=== PATIENT | male | born 1950 | race Caucasian/White ===

== ENCOUNTER 2016-12-12 05:59 | Day surgery (SDC) | payer MEDICARE ==
[2016-12-07 18:03] LABS: HEMATOCRIT 45.7 % (40.0-51.0); HEMOGLOBIN 15.4 g/dL (13.6-17.8)
[~2016-12-12 05:59] MED LIST: TIMOLOL MAL0.5 % OPH
== END 2016-12-12 23:59 | disposition home health service (06) ==
LOC: SDC 05:59
PROVIDERS: Otolaryngology
DX: Z53.9 Procedure and treatment not carried out, unspecified reason (principal); J33.9 Nasal polyp, unspecified
CPT/HCPCS: 85014; 85018; 85730; 93005

== ENCOUNTER 2016-12-19 07:06 | Day surgery (SDC) | payer MEDICARE ==
--- NOTE | ~2016-12-19 | OP ---
Record Of Operation [facility] [address] [facility] [place]. [address] NAME: KADEN TURPIN : 50 STATUS : [facility] PAT#: [id number] AGE: 66 ADM/REG DATE : 12/19/16 MR#: [id number] REPORT SERV DATE: 12/19/16 DICTATED BY: BLANCA HU DATE: 12/19/16 REPORT STATUS : Draft TRANSCRIBED BY: MODL DATE: 12/19/16 DATE OF PROCEDURE: 12/19/2016 SERVICE: Otolaryngology. SURGEON: Blanca Hu M.D. 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 PROCEDURE PERFORMED: 1. Right endoscopic medial maxillectomy. 2. Right inferior turbinate resection. 3. Right total ethmoidectomy. 4. Right sphenoidotomy with tissue removal. 5. Right frontal sinusotomy with tissue removal. 6. Placement of Propel stent in right frontal sinus outflow tract. INDICATIONS FOR PROCEDURE: The patient is a 66-year-old gentleman with a history of previous sinonasal mass, which was resected approximately six years ago in [place], [place]. 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 He is noted to have recurrence on CT imaging and presents for surgical management. SPECIMENS: 1. Right maxillary sinus contents. 2. Right sphenoid contents. 3. Right frontal sinus contents. ESTIMATED BLOOD LOSS: 250 mL. RETAINED ITEMS: Right frontal sinus Propel stent. COMPLICATIONS: None. OPERATIVE FINDINGS: 1. Inverted papilloma filling the right maxillary sinus, which shows evidence of previous maxillary antrostomy. There is also evidence of inferior partial turbinectomy as well as partial middle turbinectomy. 2. There is some concern for extension of disease into the right sphenoid sinus. This could represent a post obstructive mucosal inflammation versus extension of the inverted papilloma. 3. Similar findings were noted in the right frontal sinus outflow. There is inflamed mucosa, but also concern for extension of the disease process in the frontal sinus. CT scan confirmed both frontal and sphenoid sinuses complete opacifications. 4. Endoscopic medial maxillectomy with removal of all mucosa and gross invert Record Of Operation [facility] [address] [facility] [place]. [address] NAME: KADEN TURPIN : 50 STATUS : [facility]#: [id number] AGE: 66 ADM/REG DATE : 12/19/16 MR#: [id number] REPORT SERV DATE: 12/19/16 DICTATED BY: BLANCA HU DATE: 12/19/16 REPORT STATUS : Draft TRANSCRIBED BY: TORRES DATE: 12/19/16 papillomatous disease. There was evidence of extension of the inverted papilloma toward the true os and extending on to the lateral nasal wall mucosa. Consequently, this was brought anteriorly with possible disruption of the nasolacrimal duct. However, on palpation of the eye, there appeared to be visible nasolacrimal duct with production of tears through this in the site of the inferior meatus. DESCRIPTION OF PROCEDURE: The patient was identified in the preoperative holding where informed consent was ensured. He was brought to the operating room and placed on the operating table in supine position. General endotracheal anesthesia was induced without difficulty. A time-out was performed to correctly identify the patient and discuss operative plan. The patient was then prepped and draped in the standard fashion. The [employer] image guidance system was affixed appropriately, and all instruments were registered. The appropriate landmarks including the lateral orbital rim as well as nasion were identified and found to be appropriately identified. The [employer] navigation system was used throughout the remainder of this case. Topical 1:1000 epinephrine pledgets were placed in bilateral nasal cavities. The nasal endoscope was then white balanced appropriately, and good visualization was obtained. Epinephrine-soaked pledgets were removed, and the left nasal cavity was examined. There was no evidence of papillomatous or sinonasal mass disease. Attention was then turned to the contralateral side. There was polypoid tissue filling the right nasal cavity. This appeared to be emanating from the right maxillary sinus. It extended posteriorly towards the sphenoid sinus and superiorly toward the frontal sinus outflow. Microdebrider was used to remove the block in this tissue in the nasal cavity. The maxillary antrum, which had been previously opened by surgical procedure several years prior, was identified. The roof of the maxillary sinus was also carefully identified. A curved tonsils were then placed just posterior to the head of the inferior turbinate. These were clamped and allowed us to establish good hemostasis. The remaining inferior turbinate was then resected in its entirety. Once the maxillary antrum could be visualized in its entirety, attention was turned toward the basal lamella. This was perforated with a J-curette. The superior turbinate was immediately identified and appeared to have not undergone prior surgical resection. This was then excised in its inferior one-third portion. This was carried back to the sphenoid os, which was also identified. There was significant inflammation versus papillomatous disease in this sinus. A wide sphenoid os was created. The rostrum was removed and taken down both inferolaterally and somewhat superiorly toward what I call the corner pocket which is the ethmoid roof. There were several bony partitions on the ethmoid roof which were then traced from the sphenoid toward the frontal sinus outflow tract. These were not taken down in their entirety as they did not appear to be significantly diseased with no evidence of mucosal papilloma. As the skull base was somewhat skeletonized anteriorly, the frontal sinus tract was identified. A combination of a balloon sinuplasty as well as frontal sinus instruments were used to establish a large opening of the frontal sinus outflow. Once again similar to the sphenoid, there appeared to be significant mucosal inflammation versus papillomatous change. Some mucosa was debrided. The frontal outflow tract was significantly widened by conclusion of procedure. Prior to concluding the procedure, Propel stent was placed in the frontal sinus outflow tract. Some tissue was then debrided once again in the sphenoid sinus which was concerning for papillomatous change. Record Of Operation [facility] [id number] [facility] [place]. [address] NAME: KADEN TURPIN : 50 STATUS : [facility] PAT#: [id number] AGE: 66 ADM/REG DATE : 12/19/16 MR#: [id number] REPORT SERV DATE: 12/19/16 DICTATED BY: BLANCA HU DATE: 12/19/16 REPORT STATUS : Draft TRANSCRIBED BY: MODL DATE: 12/19/16 Attention was turned once again toward the maxillary sinus. The anterior, lateral, superior, and posterior edge were scraped appropriately of all mucosa. A suction Bovie cautery was used to burn areas of residual mucosa which was then subsequently scraped as well. It should be noted that no drilling was performed, although this is usually the case. There was no identified pedicle in the maxillary sinus. Additionally, all disease was found to have been appropriately removed from the maxillary edge. There was some bleeding near the lauren ethmoidalis, which required nasal packing for 30 minutes. This was carefully removed and the likely branch of the sphenopalatine artery was cauterized with suction Bovie cautery. As previously noted, several specimens were taken from each of the sinuses and sent to pathology for routine analysis. If pathology is consistent with inverted papilloma extending into the sphenoid and frontal sinuses, the patient will likely require a more extensive surgery and will be referred to [facility] for evaluation. For now, he will be observed in the PACU for several hours and discharged home if stable. He will be admitted overnight with any complications. He will plan to follow up with me in approximately seven days for debridement and evaluation. The patient was turned over to anesthesia for awakening and extubation and transferred to the PACU in stable condition. There were no additional complications. /MODL Blanca Hu MD / [id number] CC: Blanca Hu MD
== END 2016-12-19 20:38 | disposition home or self-care (01) ==
LOC: SDC 07:06
PROVIDERS: Otolaryngology
PROC: 09TQ4ZZ Resection of Right Maxillary Sinus, Percutaneous Endoscopic Approach (ICD-10-PCS; principal; 2016-12-19 09:00)
PROC: 09TU4ZZ Resection of Right Ethmoid Sinus, Percutaneous Endoscopic Approach (ICD-10-PCS; 2016-12-19 09:00)
PROC: 09CW4ZZ Extirpation of Matter from Right Sphenoid Sinus, Percutaneous Endoscopic Approach (ICD-10-PCS; 2016-12-19 09:00)
PROC: 09BS4ZZ Excision of Right Frontal Sinus, Percutaneous Endoscopic Approach (ICD-10-PCS; 2016-12-19 09:00)
DX: D14.0 Benign neoplasm of middle ear, nasal cavity and accessory sinuses (principal); J32.3 Chronic sphenoidal sinusitis; J32.1 Chronic frontal sinusitis; H40.9 Unspecified glaucoma; Z79.899 Other long term (current) drug therapy
CPT/HCPCS: 88305; 88331; A9270-GY; J0690; J2250; J2405; J3010